=== PATIENT | male | born 1970 | race African-American/Black ===

== ENCOUNTER 2017-05-01 15:32 | Emergency (ER) | payer MEDICAID ==
[~2017-05-01] VITALS: Ht 182.9 cm; Wt 97.0 kg
[2017-05-01] MEDS ORDERED: KETOROLAC 60MG/2ML VIAL IM ONE (19:15)
[2017-05-01 22:07] VITALS: BP 152/96
== END 2017-05-01 22:07 | disposition home or self-care (01) ==
LOC: ER 15:43
DX: M79.662 Pain in left lower leg (principal); M79.672 Pain in left foot; V88.8XXA Person injured in other specified noncollision transport accidents involving motor vehicle, nontraffic, initial encounter; Y93.55 Activity, bike riding; Y92.9 Unspecified place or not applicable; I10 Essential (primary) hypertension; G40.909 Epilepsy, unspecified, not intractable, without status epilepticus; Z88.0 Allergy status to penicillin
CPT/HCPCS: 70450; 73562; 73590; 73610; 73620; 96372; 99284; J1885; Z7610